=== PATIENT | female | born 1960 | race Caucasian/White ===

== ENCOUNTER 2020-12-05 10:47 | Day surgery (SDC) | payer BC ==
[2020-12-05] MEDS ORDERED: Ringers Lactate 1,000 ML IV ONE (11:18)
[2020-12-05] MEDS ORDERED: FENTANYL CITR 100 MCG/2 ML ONE (11:51)
[2020-12-05] MEDS ORDERED: propofoL 200 MG/20 ML VIAL IV ONE (11:51)
[2020-12-05] MEDS ORDERED: dexAMETHasone 10 MG/ML VIAL ONE (11:51)
[2020-12-05] MEDS ORDERED: MIDAZOLAM HCL 2 MG/2 ML INJ ONE (11:51)
[2020-12-05] MEDS ORDERED: ROCURONIUM 50 MG/5 ML VIAL IV ONE (11:51)
[2020-12-05] MEDS ORDERED: LIDOCAINE 2% MPF 5 ML VIAL ONE (11:51)
[2020-12-05] MEDS ORDERED: ONDANSETRON 4 MG/2 ML VIAL ONE (11:52)
[2020-12-05] MEDS ORDERED: LIDOCAINE 1% W/EPI 1:100,000 MDV 20 ML VIAL ONE (12:06)
[2020-12-05] MEDS ORDERED: GLYCOPYRROLATE 0.2 MG/ML SYR ONE (13:10)
[2020-12-05] MEDS ORDERED: NEOSTIGMINE 1 MG/ML -5 ML ONE (13:11)
[2020-12-05] MEDS ORDERED: KETOROLAC 30 MG/ML INJ ONE (13:34)
[2020-12-05 14:00] VITALS: O2SAT 98
[2020-12-05 14:33] VITALS: BP 125/78; TEMP 97
--- NOTE | 2020-12-15 23:17 | OP ---
Date of Procedure: 12/05/2020 Surgeon: Kathryn Nam MD Supervisor Rework: No cafe assistant. Preoperative Diagnosis: Postmenopausal bleeding and a Pap smear with atypical squamous cells of high grade (ASC-H). Postoperative Diagnosis: Postmenopausal bleeding and a Pap smear with atypical squamous cells of hig h grade (ASC-H). Procedures Performed: 1.Hysteroscopy, dilatation and curettage with MyoSure LITE. 2.Colposcopy of the vulva, vagina and cervix, LEEP, ECC. Anesthesia: With LMA, general. Specimens: Endometrial curettings, endocervical curettage, and LEEP (cervical cone). Ebl: Minimal. Complications: No complications. Drains: No drains. Condition: Stable. Indications: The patient is a 60-year-old female who has had a past history of postmenopausal bleedi ng. She had a Pap smear with atypical squamous cells of high grade suspicious for high-grade dysplas ia. So she had a cervical colposcopy in the office. The colposcopy was negative for any lesions. T hen, the ECC was negative as well. Given the big discrepancy, although the HPV was negative, given t he Pap being suspicious for high-grade dysplasia. She retalked about discrepancy from the examinatio n findings inconsistent with the Pap smear and recommended her to have a LEEP and ECC to look for any dysplastic cells and remove them if present. She also needed to have a colposcopy of the vagina and the vulva to make sure that there are no other dysplastic lesions that are leading to an abnormal Pa p smear on this patient. Then, she also had postmenopausal bleeding in the past given the abnormal cells here, although they w ere squamous cells, not glandular cells. There was some concern that we should probably also sample her endometrial lining because there was slightly thickened endometrium for her menopausal stage. So she was consented for hysteroscopy and D and C. Description Of Procedure: After informed consent was verified, I explained the patient all the possi bilities of inconclusive diagnosis, complications of LEEP, if there was cancer diagnosed that she wou ld have to have a hysterectomy, then further bleeding evaluation, infection, perforation of the uteru s were all reviewed with the patient and consented. She was taken back to the OR, placed in supine fashion on the operating table. General anesthesia wa s given. She was placed in a dorsal lithotomy position using Chuy stirrups. Pelvic exam was perfor med with a colposcope and 5% acetic acid was used to paint the cervix, vulva and vagina. Close exami nation was performed. No evidence of any dysplastic cells. The squamocolumnar junction was not well visualized. All the vaginal wills were carefully inspected after 2 minutes of the acetic acid appli cation. All the wills were thoroughly examined and negative. Vulva was also thoroughly examined and negative. Then I went ahead and did a hysteroscopy by grasping the anterior lip of the cervix. Marie gnostic SlimLine hysteroscope was introduced through the cervical canal into the uterine cavity. Onc e the cavity was visualized and it was empty. It appeared to be difficult to sample the lining as it was thin. The scope was changed to a MyoSure scope. This was dilated to 16-American, introduced into the uterine cavity. The MyoSure LITE device was taken and this was used for endometrial curettings. Since all this was obtained without any problems, the scope was removed along with the device and Al lis clamps were removed. Then I went on to focus on the leak. N95 masks were used by the staff and myself. Suction evacuator was used. The patient was placed in the Trendelenburg in the dorsal lithotomy position. Then a small loop was used to circumferentially excise the entire ectocervical area including a small piece of the endocervical canal. ECC was then performed. Both specimens were tagged and sent out for permanent pathology. The base of the LEEP wa s cauterized with the help of ball cautery and was applied x2. There was excellent hemost asis. Instrument, needle, and sponge counts were correct. The patient was recovered from anesthesia and taken to PACU in a stable condition. She has an appointment with me in 3 weeks. EFLTON/ASHELY Voice ID: [id number] Report ID: [id number]
--- NOTE | 2020-12-17 21:53 | OP ---
Date of Procedure: 12/05/2020 Surgeon: Kathryn Nam MD Robotics Software Engineer: No customer service assistant. Preoperative Diagnoses: Postmenopausal bleeding and Pap smear with atypical squamous cells, cannot r ule out high-grade dysplasia (ASC-H) and discrepancy between the Pap and outpatient colposcopy. Postoperative Diagnoses: Postmenopausal bleeding and Pap smear with atypical squamous cells, cannot rule out high-grade dysplasia (ASC-H) and discrepancy between the Pap and outpatient colposcopy. Procedures Performed: 1.Hysteroscopy dilatation and curettage with MyoSure light. 2.Colposcopy of the vulva, vagina, and cervix and LEEP with ECC. Anesthesia: General with LMA. Estimated Blood Loss: Minimal. Specimen: LEEP and ECC, endometrial curettings. Complications: No complications. Drains: No drains. Condition: The patient's condition is stable. Findings: The vulva, vagina, and cervix were visualized with the colposcope after painting with acet owhite epithelium. There was not evidence of any dysplastic cells. LEEP was performed without any c omplications. ECC was done and the base of the LEEP had excellent hemostasis. On hysteroscopic evaluation, the endometrial cavity appeared to be unremarkable. The lining was thin , so endometrial curettings were performed with MyoSure Lite device to make sure that the sample was adequate. The patient had a remote history of postmenopausal bleeding. Her Pap smear came back as atypical squ amous cells suspicious for high-grade dysplasia. Colposcopy was performed couple of times. ECC was done. No evidence of any dysplastic cells. HPV testing, although was negative, was suspicious that it could be some high-grade dysplasia that is not visualized and so discussed with the patient about all the possibilities of dysplasia that was undiagnosed and it was a discrepant Pap. I was concerned in this patient with this age. In this age group, no other reasons were there for a removal of the uterus, so wanted to do a through evaluation of the areas susceptible for dysplasia and also do endom etrial sampling due to that remote history of postmenopausal bleeding, although no glandular cells we re visualized in the Pap smear. This was something that could be evaluated better as the ultrasound showed thin lining in the past when she was presented with bleeding. We did not do any endometrial s ampling given all the abnormal unexplained Pap smear results, although there were normal g landular cells, wanted to perform the hysteroscopy and sampling. The patient consented completely un derstanding her options of observation and followup ultrasound and Pap smears. She wanted to proceed with this for definitive answers so that there did not have to be many more tests. Description Of Procedure: After informed consent was verified, she was taken back to OR, placed in s upine fashion on the operating table. After anesthesia was given, placed in a dorsal lithotomy posit ion. Colposcopy was performed with acetic acid on the cervix first. No evidence of any dysplastic c ells. After waiting 1 minute, 5% acetic acid was applied all over the vagina, vulva, perineal area, and perianal area. No evidence of any dysplasia . Thorough examination was done with the above. A speculum was placed to expose the cervix. Anterior lip grasped with an Allis clamp carefully and d iagnostic SlimLine hysteroscope was used to enter the cervical canal under direct visualization and u terine cavity was entered, unremarkable cavity entered. Cavity was well visualized. Scope was pulle d out, was dilated to 16-Czech. A MyoSure scope was introduced through which Myosure Lite device wa s used to perform endometrial curettings in a global fashion. Once this was done and was adequate, t he scope and instruments were pulled out. . Once the cervical length was measured with the scope, I had an idea on how deep I wanted to get the L EEP. The appropriate wire loop was chosen. A rounded speculum was used. Smoke evacuator used and N 95 masks were used by staff and myself. Then, the loop was used to perform a LEEP in an adequate fas hion. Then, ECC was performed. All these were handed off for permanent pathology. Ball cautery was used to cauterize the base and astringent was used to chemically cauterize for hemostasis. Two roun ds of that were done. After excellent hemostasis, the patient was recovered from anesthesia and take n to PACU in stable condition. EBL was minimal. She has a 3 week followup. FELTON/ASHELY Voice ID: [id number] Report ID: [id number]
== END 2020-12-05 14:50 | disposition home or self-care (01) ==
LOC: OR 10:47
PROVIDERS: ATTEND Obstetrics & Gynecology
PROC: 0UDB8ZX Extraction of Endometrium, Via Natural or Artificial Opening Endoscopic, Diagnostic (ICD-10-PCS; 2020-12-05)
PROC: 0UDB7ZX Extraction of Endometrium, Via Natural or Artificial Opening, Diagnostic (ICD-10-PCS; principal; 2020-12-05 12:15)
PROC: 0UJD8ZZ Inspection of Uterus and Cervix, Via Natural or Artificial Opening Endoscopic (ICD-10-PCS; 2020-12-05 12:15)
PROC: 0UBC8ZX Excision of Cervix, Via Natural or Artificial Opening Endoscopic, Diagnostic (ICD-10-PCS; 2020-12-05 12:15)
DX: R87.621 Atypical squamous cells cannot exclude high grade squamous intraepithelial lesion on cytologic smear of vagina (ASC-H) (principal); N95.2 Postmenopausal atrophic vaginitis; N95.0 Postmenopausal bleeding; Z20.822 Contact with and (suspected) exposure to COVID-19
CPT/HCPCS: 58558; 57460; 57456; 88305; 88307; U0002; J2704; J2250; J3010; J1100; J2710; J7120; J2405

== ENCOUNTER 2021-08-07 06:25 | Day surgery (SDC) | payer BC ==
[2021-08-01 12:53] LABS: Urine Appearance CLEAR (Clear); Urine Bilirubin NEGATIVE (Negative); Urine Blood NEGATIVE (Negative); Urine Color YELLOW (Yellow); Urine Glucose NEGATIVE (Negative); Urine Protein NEGATIVE (Negative); Urine Urobilinogen 0.2 mg/dL (0.2-1.0)
[2021-08-01 12:55] LABS: Absolute Lymphocytes (CBC) 1.3 K/uL (0.7-4.9); Hematocrit 42.5 % (36.0-45.0); Lymphocytes % 23.4 % (15.3-44.8); RBC Red Blood Cell Count 4.78 M/uL (3.86-4.86); Urine Microscopic Reflex NO UMIC
[2021-08-07] MEDS ORDERED: Ringers Lactate 1,000 ML IV ONE ×2 (06:38→09:45)
[2021-08-07] MEDS ORDERED: CEFAZOLIN/SWI 2gm 2 GM/20 ML SYR ONE (06:38)
[2021-08-07] MEDS ORDERED: LIDOCAINE 1% W/EPI 1:100,000 MDV 20 ML VIAL ONE (07:00)
[2021-08-07] MEDS ORDERED: KETAMINE HCL 500 MG/5 ML VIAL ONE (07:08)
[2021-08-07] MEDS ORDERED: propofoL 200 MG/20 ML VIAL IV ONE (07:08)
[2021-08-07] MEDS ORDERED: LIDOCAINE 1% MPF 5 ML VIAL ONE (07:08)
[2021-08-07] MEDS ORDERED: dexAMETHasone 10 MG/ML VIAL ONE (07:08)
[2021-08-07] MEDS ORDERED: MIDAZOLAM HCL 2 MG/2 ML INJ ONE (07:08)
[2021-08-07] MEDS ORDERED: FENTANYL CITR 250 MCG/5 ML ONE (07:08)
[2021-08-07] MEDS ORDERED: ROCURONIUM 50 MG/5 ML VIAL IV ONE (07:09)
[2021-08-07] MEDS ORDERED: ONDANSETRON 4 MG/2 ML VIAL ONE (07:09)
[2021-08-07] MEDS ORDERED: VASOPRESSIN 20 UNIT/ML VIAL ONE ×2 (07:09→10:18)
[2021-08-07] MEDS ORDERED: NA CHLORIDE 0.9% 100 ML IV ONE (07:09)
[2021-08-07] MEDS ORDERED: ACETAMINOPHEN 500 MG TAB ONE ×2 (07:12→07:15)
[2021-08-07] MEDS ORDERED: CELECOXIB 100 MG CAPSULE ONE (07:13)
[2021-08-07] MEDS ORDERED: SCOPOLAMINE HYDROBROMIDE PATCH TD ONE ×2 (07:13→07:15)
[2021-08-07] MEDS ORDERED: CELECOXIB 100 MG CAPSULE PO ONE (07:15)
[2021-08-07] MEDS ORDERED: ACETAMINOPHEN 500 MG TAB PO ONE (07:15)
[2021-08-07] MEDS ORDERED: GLYCOPYRROLATE 0.2 MG/ML SYR ONE (08:25)
[2021-08-07] MEDS ORDERED: METHYLENE BLUE 0.5% 10 ML AMP ONE (10:10)
[2021-08-07] MEDS ORDERED: HOME MED 1 EA UNK (Estradiol [Estrace] 42.5 GM Cream.Appl) VG SCH (11:00)
--- NOTE | 2021-08-07 11:07 | P.BOP ---
Preoperative diagnosis: posterior wall defect Postoperative diagnosis: same and Uterovaginal level 1 prolapse Primary procedure: Rt SSLF colpocervicopexy,Post wall/enterocele repair, perineorrhaphy Secondary procedure: cysto Professor Of Apologetics: Rosario Harp Estimated blood loss: 50, UO 200 Specimen: none Findings: -1/-1/-3/4.5/mod/7/0/+1/-5 Anesthesia: General Complications: None Drain(s): Urinary catheter Transferred to: Recovery Room Condition: Good
[2021-08-07 14:40] VITALS: BP 106/60; TEMP 97.5
[2021-08-07 14:42] VITALS: O2SAT 94
[2021-08-08] MEDS ORDERED: ATORVASTATIN 80 MG TAB PO SCH (09:00)
[2021-08-08] MEDS ORDERED: HOME MED 1 EA UNK (Multivitamin [Multivitamin] Tablet) PO SCH (09:00)
[2021-08-08] MEDS ORDERED: LORATADINE 10 MG TAB PO SCH (09:00)
[2021-08-08] MEDS ORDERED: HOME MED 1 EA UNK (Glucosamine/Chondr Su A Sod [Osteo Bi-Flex Caplet] Tablet) PO SCH (09:00)
--- NOTE | 2021-08-09 16:16 | OP ---
Date of Procedure: 08/07/2021 Surgeon: Kathryn Nam MD Mill Roll Rewinder: Rosario Aparicio. Preoperative Diagnosis: Posterior wall defect. Postoperative Diagnoses: Posterior wall defect, uterovaginal prolapse, posterior enterocele. Procedures Performed: 1.Right sacrospinous ligament fixation, cervical colpopexy. 2.Posterior wall repair, posterior enterocele repair, and perineorrhaphy, cystoscopy. Estimated Blood Loss: 50. Urine Output: 200. Specimens: No specimens. Complications: No complications. Drains: Fontaine catheter. Findings: POP-Q -1, -1, -3, 4.5, moderate 7, 0, +1, and -5. Condition: Stable. Procedure In Detail: After informed consent was verified, the patient was taken back to OR, placed i n a supine fashion on the operating table. 2 g of Ancef were given. SCDs were placed. She was then placed in dorsal lithotomy position using Chuy stirrups. Lower abdomen, vulva, vagina, and perineu m were prepped and draped in a sterile fashion. Fontaine was placed to drain the bladder and clamped an d retracted superiorly. Examination was performed. POP-Q was found to be above, so plan was made to do a right sacrospinous cervical colpopexy to prevent apical anterior prolapse as her point C was at -3, and the descent of the anterior vaginal wall was corrected when the apex was taken back to her s acrospinous ligament. The hymenal remnants were picked up with 2 Allis clamps, injected with 1% lidocaine, posterior wall i njected with dilute vasopressin. A triangular skin incision was made on the perineum and the skin ex cised. Then, a alex-shaped incision made in the posterior 1/3 of the vaginal wall, only about 2 c m wide, about 2.5 cm in length. Then, the vaginal epithelium was excised from the underlying connect abdon tissue. The rectovaginal septum was dissected free. The vaginal flaps were raised superiorly di ssecting the posterior wall completely all the way to the apex. There was slight posterior enterocel e, but most of the rectovaginal septum was still attached to the top. The enterocele appeared to be in between the apical and the proximal rectovaginal septum distal, there was a tear in the middle. T his was reduced with [id number] 3-0 Monocryl suture. Once this was reduced, then dissection was pe rformed to the right lateral wall after dissecting it all the way from the apex to the right pararect al space all the way down to the level of the perineum where the perineal body was exposed and dissec tion on the perineum was also performed on both sides, so the perineorrhaphy can be done. Then, right pararectal space was further dissected to identify the ischial spine and through the medi al and posterior towards the coccyx, the sacrospinous ligament was cleared up through the coccygeus m uscle and the rectum dissected medially. Then, Capio device was taken with a Prolene suture. In the mid ligament, a suture was placed. Then, another suture was placed slightly apart from it protectin g the bowels while placing the suture. Then, the sutures were held on 2 hemostats. I had to replace the suture so that the ligament was not encircled to prevent nerve injury. After making sure the cervix was exposed, uterosacral ligament was picked up with Allis clamps on thi s side. Then, the sutures of the Prolene were passed through the uterosacral, both of them to the ri t uterosacral. These were held on clamps. Then, the defect of the rectovaginal septum was repaired with 2-0 Vicryl in a continuous running fashion along the transposed defect. Then, the defect detached it slightly f rom the perineal body. The perineal body was reconstructed with 2-0 Vicryl sutures x2. Once this wa s reconstructed, then the rectovaginal septum was reattached to it and then the stitch was completed here, then with trimming the edges to make them even without any for the loss of vaginal tissue. The posterior incision was closed with the help of a 2-0 Vicryl in a continuous running fashion. After 4 sutures were placed, this was held on the clamp. Then, the apical sutures were tied down to the sa crospinous taking the cervix without any bridge to the ligament. Once they were tied, not too tight, just optimally. Then, the vaginal epithelial closure was continued till the level of the hymen. Then, the perineum was reconstructed with interrupted 2-0 Vicryl sutures x2. A finger in the rectum was placed to make sure that there were no sutures through here. After changing the gloves, the 3-0 Monocryl was used to do a subcutaneous and a subcuticular closure. Once this was completed, rectal exam was negative, I then went down to remove the Fontaine and do a cy stoscopy. Both ureteric orifices had good streams of urine. The right was slightly more lazy and a Glidewire had to pass through, which passed easily. Despite that, there was no efflux that was noted . So, a 5-Lithuanian right ureteric stent was placed and removed and once this was done, there was a jet of urine and there was efflux that was very notable. Methylene blue was also given to make sure javier t I was able to visualize the urinary jet. Once this was confirmed and patency was confirmed, the bl adder was drained, Fontaine was replaced. Vaginal packing was placed. The patient was recovered from a nesthesia and taken to PACU in stable condition. Plan for this patient is to send her home and discharge her home with a Fontaine. She will remove her c atheter on Friday at 6 a.m. and come to the office at 0830 for a voiding trial. Her was debr iefed on the procedures performed. FELTON/ASHELY Voice ID: [id number] Report ID: [id number]
== END 2021-08-07 12:25 | disposition home or self-care (01) ==
LOC: OR 06:25
PROVIDERS: ATTEND Obstetrics & Gynecology
PROC: 0HQ9XZZ Repair Perineum Skin, External Approach (ICD-10-PCS; 2021-08-07)
PROC: 0JQC0ZZ Repair Pelvic Region Subcutaneous Tissue and Fascia, Open Approach (ICD-10-PCS; 2021-08-07)
PROC: 0USG7ZZ Reposition Vagina, Via Natural or Artificial Opening (ICD-10-PCS; principal; 2021-08-07 07:30)
DX: N81.4 Uterovaginal prolapse, unspecified (principal); R87.621 Atypical squamous cells cannot exclude high grade squamous intraepithelial lesion on cytologic smear of vagina (ASC-H); N95.2 Postmenopausal atrophic vaginitis; K59.02 Outlet dysfunction constipation; Z20.822 Contact with and (suspected) exposure to COVID-19
CPT/HCPCS: 57282; 85025; 36415; 86900; 86850; 86901; 81003; 57250; U0003; J2704; J2250; J3010; J1100; J0690; J7120 ×2; J2405